=== PATIENT | female | born 1985 | race Caucasian/White ===

== ENCOUNTER 2017-04-27 08:25 | Emergency (ER) | payer OTHER ==
[~2017-04-27] VITALS: Ht 165.1 cm; Wt 78.2 kg
[~2017-04-27 08:25] MED LIST: IBUP-1222 PO; NONE PER PT; NORE-88; OXYC-302 PO
[2017-04-27 08:27] VITALS: BP 135/84
== END 2017-04-27 09:57 | disposition home or self-care (01) ==
LOC: ED 09:29
DX: M75.92 Shoulder lesion, unspecified, left shoulder (principal); E11.9 Type 2 diabetes mellitus without complications
CPT/HCPCS: 93005; 99284